=== PATIENT | female | born 1955 | race Caucasian/White ===

== ENCOUNTER 2018-05-29 10:09 | Observation (INO) ==
[2018-05-29] MEDS ORDERED: 0.9 % Sodium Chloride 1,000 ML IVC ONE (10:32)
--- NOTE | 2018-05-29 10:38 | Emergency Department Note ---
Disposition Clinical Impression: Dizziness Disposition: Admitted As Inpatient Condition: Fair Time of Disposition: 11:57 Dizziness HPI - General Chief Complaint: ED Dizziness Stated Complaint: dizziness, unsteady gait Time Seen by Provider: 05/29/18 10:15 Source: patient, family Limitations: no limitations Nursing Notes Reviewed: Yes Vital Signs Reviewed: Yes - History of Present Illness HPI Narrative: 62-year-old female presents from home with bedside for evaluation of dizziness. This is been constant upon awakening yesterday morning. She also had several self-limited episodes 2-3 days ago which lasted 4-5 minutes. She describes an intense sensation of the room spinning around her. Worse with any movement. Minimized but still present when laying flat with her eyes closed. She has a 45 minute gradual onset sharp stabbing midline headache and a [place] distribution that extends down to her for head. She also had a transient episode of numbness of her cheeks and upper palate of her mouth. She has associated nausea and vomiting. Decreased by mouth intake. Symptoms slightly improved but still severe with by mouth meclizine 25 mg over- the-counter. She is otherwise unable to ambulate secondary to her symptoms. PMH: Gout, hypertension. No history of CVA, TIA, ACS, or dysrhythmias. No anticoagulant or antiplatelet use. ROS: Positive: As above Negative: Fever, chills, neck pain, chest pain, palpitations, dyspnea, diaphoresis, extremity weakness/numbness/tingling. - Related Data Home Medications Medication Instructions Recorded Confirmed Omeprazole Magnesium [Prilosec Otc] 20 mg PO DAILY 08/25/15 05/29/18 Allopurinol [Zyloprim 100 MG] 100 mg PO DAILY PRN 05/29/18 05/29/18 Atorvastatin [Lipitor] 40 mg PO DAILY 05/29/18 05/29/18 Citalopram Hydrobromide 20 mg PO DAILY 05/29/18 05/29/18 [Citalopram HBr] Indomethacin [Indomethacin] 50 mg PO DAILY PRN 05/29/18 05/29/18 Lisinopril-HCTZ 20-12.5 [Prinzide 1 tab PO DAILY 05/29/18 05/29/18 20-12.5] Tramadol HCl [Ultram] 50 mg PO BID PRN 05/29/18 05/29/18 Previous Rx's Medication Instructions Recorded Ibuprofen [Motrin] 600 mg PO Q6HR PRN #20 tab 05/20/17 Allergies Allergy/AdvReac Type Severity Reaction Status Date / Time Tetanus Vaccines and Toxoid Allergy Swelling Verified 05/29/18 12:20 [Tetanus Vaccines & Toxoid] of Lip/Tongue/Throat All systems ED: reviewed and negative except as stated. 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 Head: atraumatic, normocephalic Eye: normal appearance, PERRL, EOMI with fatigable leftward nystagmus and no vertical nystagmus, no scleral icterus, no conjunctival injection ENT: mucous membranes tacky, normal external ear exam Neck: normal inspection, trachea midline, full ROM Chest: normal inspection, symmetric chest rise Respiratory: Good respiratory effort. Bilateral breath sounds are clear without wheezing, crackles, or rhonchi. Cardiovascular: Regular rate and rhythm. No clicks, rubs, gallops, or murmors. Normal heart sounds. Abdomen: Bowel sounds present normoactive x-4 quadrants. Abdomen is soft, nondistended, and nontender. No guarding or rebound. Musculoskeletal: Spontaneously moving all extremities. Skin: warm, dry, intact. Neuro: Alert and oriented x4. Sensation light touch intact and equal bilaterally in upper and lower extremities. Strength 5/5 and equal in upper and lower extremities. Negative finger to nose. Psych: Patient's affect is appropriate for situation. - General Limitations: no limitations General appearance: alert, in no apparent distress Course Course Narrative: Clinical concern is for central vertigo given her symptoms have been persistent and are present at rest. Will CT head without contrast and perform laboratory workup. Anticipate admission for inpatient MRI. Chart check shows that the patient has right carotid stenosis that was 60-70% 2 years ago. This could be contributing to her symptoms. We will recommend she have carotid duplex ultrasound on inpatient. Once results are back, will call neurology. CT head unremarkable per radiology read. Patient symptoms were not markedly improved while the emergency department after IV fluids. Nausea was well controlled with Zofran. I held on meclizine she guarded taking some this morning. I held on Valium or Ativan to not sedate her for hospitalist review. I discussed plan for admission for the patient with both her and her . They are in agreement to admission given patient cannot angulate and her dizziness persists. BuSpar my workup, I have not found a conclusive expiration. Still suspect peripheral however, when I spoke with the admitting hospitalist Dr. Negron, I recommended MRI to definitively rule out cerebellar stroke. EKG dated 29 May 2018 at 10:22 interpreted as sinus rhythm with a rate of 67. Normal intervals. Normal axis. Nonspecific ST-T changes. Compared to previous EKG dated 08/25/2015 showing no acute ischemic changes or comparison. Head CT 05/29/18 10:32 IMPRESSION: No acute intracranial abnormality. D/ / Manuel Parra MD / Manuel Parra MD Interpreting Provider: Manuel Parra MD Vital Signs Temperature 97.5 F L 05/29/18 10:10 Pulse Rate 73 05/29/18 10:10 Respiratory Rate 18 05/29/18 10:10 Blood Pressure 154/93 05/29/18 10:10 O2 Sat by Pulse Oximetry 98 05/29/18 10:10 Temperature 97.3 F L 05/29/18 14:33 Pulse Rate 63 05/29/18 14:33 Respiratory Rate 18 05/29/18 14:33 Blood Pressure 143/72 05/29/18 14:33 O2 Sat by Pulse Oximetry 94 05/29/18 14:33 Oxygen Delivery Oxygen Delivery Room Air Dizziness - Lab Data Result diagrams: 05/29/18 10:32 05/29/18 10:32 Lab Results 05/29/18 05/29/18 05/29/18 Range/Units 10:27 10:32 10:32 WBC 9.6 (4.3-11.1) K/mcL RBC 4.23 (3.82-4.97) M/mcL Hgb 13.2 (11.5-15.4) g/dL Hct 37.2 (35.3-44.9) % MCV 87.9 (83.0-100.0) fL MCH 31.2 (28.0-33.3) pg MCHC 35.5 (31.6-35.5) g/dL RDW 12.2 (11.5-14.5) % Plt Count 246 (140-400) K/mcL MPV 10.9 (9.4-12.4) fL Immature Gran % 0.3 (0-4) % Seg Neutrophils % 73.7 % Lymphocytes % 19.6 % Monocytes % 5.3 % Eosinophils % 0.8 % Basophils % 0.3 % Neutrophils # 7.1 (1.6-8.9) K/mcL Lymphocytes # 1.9 (0.6-4.6) K/mcL Monocytes # 0.5 (0.0-1.3) K/mcL Eosinophils # 0.1 (0.0-0.6) K/mcL Basophils # 0.0 (0.0-0.2) K/mcL Sodium 137 (136-145) mEq/L Potassium 3.6 (3.5-5.1) mEq/L Chloride 102 (98-107) mEq/L Carbon Dioxide 27 (23-29) mEq/L BUN 15 (8-23) mg/dL Creatinine 0.86 (0.60-1.20) mg/dL Est GFR ( Amer) > 60 (> 60) Est GFR (Non-Af Amer) > 60 (> 60) BUN/Creatinine Ratio 17 (6-26) Glucose 130 H (70-105) mg/dL POC Glucose 113 H (70-99) mg/dL Calculated Osmolality 287 (280-300) Calcium 10.0 (8.6-10.3) mg/dL Magnesium 1.7 (1.6-2.6) mg/dL
[2018-05-29] MEDS ORDERED: Ondansetron 4 MG/2 ML VIAL ONE (10:51)
[2018-05-29] MEDS: Ondansetron 4 MG/2 ML VIAL IVP ONE ×2 (10:53→10:54)
[2018-05-29 11:01] LABS: Basophils % 0.3 %; Eosinophils # 0.1 K/mcL (0.0-0.6); Eosinophils % 0.8 %; Hematocrit 37.2 % (35.3-44.9); Hemoglobin 13.2 g/dL (11.5-15.4); Immature Granulocytes % 0.3 % (0-4); Lymphocytes # 1.9 K/mcL (0.6-4.6); Lymphocytes % 19.6 %; Mean Corpuscular HGB Conc 35.5 g/dL (31.6-35.5); Mean Corpuscular Hemoglobin 31.2 pg (28.0-33.3); Mean Corpuscular Volume 87.9 fL (83.0-100.0); Mean Platelet Volume 10.9 fL (9.4-12.4); Monocytes # 0.5 K/mcL (0.0-1.3); Monocytes % 5.3 %; Neutrophils # 7.1 K/mcL (1.6-8.9); Platelet Count 246 K/mcL (140-400); Red Blood Count 4.23 M/mcL (3.82-4.97); Red Cell Distribution Width 12.2 % (11.5-14.5); Segmented Neutrophils % 73.7 %
[2018-05-29 11:21] LABS: BUN/Creatinine Ratio 17 (6-26); Blood Urea Nitrogen 15 mg/dL (8-23); Carbon Dioxide 27 mEq/L (23-29); Chloride 102 mEq/L (98-107); Glucose 130 mg/dL (70-105); Magnesium 1.7 mg/dL (1.6-2.6); Osmolality,Calculated 287 (280-300); Potassium 3.6 mEq/L (3.5-5.1); Sodium 137 mEq/L (136-145); eGFR For African Americans > 60 (> 60); eGFR For Non-African Americans > 60 (> 60)
--- NOTE | 2018-05-29 11:22 | Emergency Department Note ---
Disposition Clinical Impression: Dizziness Disposition: Admitted As Inpatient Condition: Fair General Adult HPI - General Chief complaint: ED Dizziness Stated complaint: dizziness, unsteady gait Time Seen by Provider: 05/29/18 10:15 Source: patient, family Limitations: no limitations - History of Present Illness Pain Scale: 7 - Related Data Home Medications Medication Instructions Recorded Confirmed Omeprazole Magnesium [Prilosec Otc] 20 mg PO DAILY 08/25/15 05/29/18 Allopurinol [Zyloprim 100 MG] 100 mg PO DAILY PRN 05/29/18 05/29/18 Atorvastatin [Lipitor] 40 mg PO DAILY 05/29/18 05/29/18 Citalopram Hydrobromide 20 mg PO DAILY 05/29/18 05/29/18 [Citalopram HBr] Indomethacin [Indomethacin] 50 mg PO DAILY PRN 05/29/18 05/29/18 Lisinopril-HCTZ 20-12.5 [Prinzide 1 tab PO DAILY 05/29/18 05/29/18 20-12.5] Tramadol HCl [Ultram] 50 mg PO BID PRN 05/29/18 05/29/18 Previous Rx's Medication Instructions Recorded Ibuprofen [Motrin] 600 mg PO Q6HR PRN #20 tab 05/20/17 Allergies Allergy/AdvReac Type Severity Reaction Status Date / Time Tetanus Vaccines and Toxoid Allergy Swelling Verified 05/29/18 12:20 [Tetanus Vaccines & Toxoid] of Lip/Tongue/Throat Past Medical History - Past Medical History Medical history: Reports: hyperlipidemia, hypertension Surgical history: Reports: hysterectomy Psychiatric history: Reports: anxiety, depression 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 - Social History Smoking Status: Never smoker Smokeless Tobacco Status: No Alcohol use: Reports: none Drug use: Reports: none Physical Exam - General Limitations: no limitations General appearance: alert, in no apparent distress Course Vital Signs Temperature 97.5 F L 05/29/18 10:10 Pulse Rate 73 05/29/18 10:10 Respiratory Rate 18 05/29/18 10:10 Blood Pressure 154/93 05/29/18 10:10 O2 Sat by Pulse Oximetry 98 05/29/18 10:10 Temperature 97.5 F L 05/29/18 10:27 Pulse Rate 57 05/29/18 11:53 Respiratory Rate 05/29/18 11:53 Blood Pressure 149/88 05/29/18 11:53 O2 Sat by Pulse Oximetry 97 05/29/18 11:53 Oxygen Delivery Oxygen Delivery Room Air Medical Decision Making - Lab Data Result diagrams: 05/29/18 10:32 05/29/18 10:32 Lab Results 05/29/18 05/29/18 05/29/18 Range/Units 10:27 10:32 10:32 WBC 9.6 (4.3-11.1) K/mcL RBC 4.23 (3.82-4.97) M/mcL Hgb 13.2 (11.5-15.4) g/dL Hct 37.2 (35.3-44.9) % MCV 87.9 (83.0-100.0) fL MCH 31.2 (28.0-33.3) pg MCHC 35.5 (31.6-35.5) g/dL RDW 12.2 (11.5-14.5) % Plt Count 246 (140-400) K/mcL MPV 10.9 (9.4-12.4) fL Immature Gran % 0.3 (0-4) % Seg Neutrophils % 73.7 % Lymphocytes % 19.6 % Monocytes % 5.3 % Eosinophils % 0.8 % Basophils % 0.3 % Neutrophils # 7.1 (1.6-8.9) K/mcL Lymphocytes # 1.9 (0.6-4.6) K/mcL Monocytes # 0.5 (0.0-1.3) K/mcL Eosinophils # 0.1 (0.0-0.6) K/mcL Basophils # 0.0 (0.0-0.2) K/mcL Sodium 137 (136-145) mEq/L Potassium 3.6 (3.5-5.1) mEq/L Chloride 102 (98-107) mEq/L Carbon Dioxide 27 (23-29) mEq/L BUN 15 (8-23) mg/dL Creatinine 0.86 (0.60-1.20) mg/dL Est GFR ( Amer) > 60 (> 60) Est GFR (Non-Af Amer) > 60 (> 60) BUN/Creatinine Ratio 17 (6-26) Glucose 130 H (70-105) mg/dL POC Glucose 113 H (70-99) mg/dL Calculated Osmolality 287 (280-300) Calcium 10.0 (8.6-10.3) mg/dL Magnesium 1.7 (1.6-2.6) mg/dL Attestation Statement - Attestation Attestation: I examined this patient and my medical decision-making was reviewed with the ONLINE MARKETING ANALYST/PA/Advanced Practice Nurse/Resident Physician. I agree with the documented findings, disposition and treatment plan as described except to the extent set forth below. The patient has vertiginous dizziness which started suddenly when she sat up yesterday morning after waking up. It did not start when she rolled over and she did not have any dizziness when she was lying in bed but did start when she sat up. It is worse with range of motion of her head however she also has vertiginous dizziness at rest and it is constant but worse with turning head, associated vomiting. Unsteady gait. Did have similar episode 6 months ago which spontaneously resolved. Does have a history of carotid artery stenosis. Last night she had a onset of a headache which began gradually over 45 minutes and was severe but is now resolved. Symptoms could certainly be from peripheral vertigo however concern for central cause such as cerebellar infarction especially with the patient's past history and age so we will initiate testing with labs, urine, noncontrast head CT with likely admission for neurology consultation and inpatient MRI. Patient did receive Zofran for her vomiting. 1116 I did review the EKG showing normal sinus rhythm with a rate of 67 bpm without acute ischemic change 1154
[2018-05-29] MEDS ORDERED: Naloxone 0.4 MG/ML INJ IVP PRN (13:49)
[2018-05-29] MEDS ORDERED: Indomethacin 25 MG CAPSULE PO PRN (14:03)
[2018-05-29] MEDS ORDERED: SUMAtriptan succinate 25 MG TABLET PO ONE (14:05)
[2018-05-29] MEDS ORDERED: *HR* Promethazine 25 MG/ML VIAL IVP PRN (14:09)
[2018-05-29] MEDS: 0.9 % Sodium Chloride 1,000 ML IVC SCH (14:46)
[2018-05-29 14:57] LABS: Bilirubin,Urine Negative (Negative); Blood,Urine Negative (Negative); Clarity,Urine Clear (Clear); Color,Urine Yellow (Yellow); Glucose,Urine (UA) Normal (Normal); Ketones,Urine Negative (Negative); Leukocyte Esterase,Urine Negative (Negative); Nitrite,Urine Negative (Negative); Protein,Urine Negative (Neg-Trace); Urobilinogen,Urine Normal (Normal)
--- NOTE | 2018-05-29 15:41 | Internal Med History&Physical ---
<Derek Aparicio - Last Filed: 05/29/18 16:30> Date of Encounter: 05/29/18 Time of Encounter: 13:30 Internal Medicine - H&P: HPI Chief complaint: Dizziness/N/V Admitted From: Emergency Dept Plans for Post Hospital Care: Home History of present illness: Ms. Chamberlain is a 62 year old female w/PMH of HLD, HTN, gout, and GERD presents from the ED with chief complaint of severe dizziness, headache, numbness of the cheeks and mouth since Friday. Patient reports she began having symptoms of feeling hot and cold followed by symptoms of dizziness, room spinning, nausea, dry heaves, headache, and pain to bilateral jaws. Also reports numbness of her cheeks and palate of her mouth. Denies history of migraines or vertigo. Reports sensitivity to light and sound. Sx worse with movement. Pt. reports feeling ill for the past 4 days w/fever/chills, nausea, dry heaving, and dizziness but denies changes in vision, unusual bleeding, abdominal pain, diarrhea, constipation, pre-syncope, or syncope. Past Med Surg Social Fam HX - Past Medical History Source: patient, old records reviewed, obtained from family Medical history: GERD, hyperlipidemia, hypertension, other (Gout) Additional medical history: Gout, Bowel obstructions Psychiatric history: anxiety, depression - Past Surgical History Surgical History: appendectomy, cholecystectomy, hysterectomy (Total) - Social History Smoking Status: Never smoker Smokeless Tobacco Status: No Alcohol use: none Drug use: none Occupational status: employed Current living situation: Home, With Family Activity Level: Independent ambulation Recent Out of Country Travel Within the Last 8 Weeks: No Exposure or Possible Exposure to Illness During Travel: No - Family History Mother Race: Family Member Ethnicity: Non- Living Status: Age at : 82 Cause of : [place] Hx Family Cardiac Disorders: Yes ([place], CAD, Stents, TIAs) Hx Family Endocrine Disorder: Yes (DM) Hx Family Neurologic Disorders: Yes (TIAs) Father Race: Family Member Ethnicity: Non- Living Status: Age at : 82 Cause of : [place] Hx Family Cardiac Disorders: Yes (CAD, [place]) Hx Family Endocrine Disorder: Yes (DM) Brother Race: Family Member Ethnicity: Non- Living Status: Age at : 40 Cause of : [place] @ 40 Hx Family Cardiac Disorders: Yes ([place], CAD, HTN) Sister Race: Family Member Ethnicity: Non- Living Status: Still Living Hx Family Endocrine Disorder: Yes (DM) Hx Family Neuromuscular Disorders: Yes (Parkinson's disease) Internal Medicine - H&P: Meds Omeprazole Magnesium [Prilosec Otc] 20 mg PO DAILY 08/25/15 [History] Ibuprofen [Motrin] 600 mg PO Q6HR PRN #20 tab 05/20/17 [Rx] Allopurinol [Zyloprim 100 MG] 100 mg PO DAILY PRN 05/29/18 [History] Atorvastatin [Lipitor] 40 mg PO DAILY 05/29/18 [History] Citalopram Hydrobromide [Citalopram HBr] 20 mg PO DAILY 05/29/18 [History] Indomethacin [Indomethacin] 50 mg PO DAILY PRN 05/29/18 [History] Lisinopril-HCTZ 20-12.5 [Prinzide 20-12.5] 1 tab PO DAILY 05/29/18 [History] Tramadol HCl [Ultram] 50 mg PO BID PRN 05/29/18 [History] 3 Allergy/AdvReac Type Severity Reaction Status Date / Time Tetanus Vaccines and Toxoid Allergy Swelling Verified 05/29/18 12:20 [Tetanus Vaccines & Toxoid] of Lip/Tongue/Throat All Systems PM: A 10-system review of systems was performed and is negative for pertinent findings except as documented above in the HPI. - Constitutional Constitutional: as per HPI, chills, fever(s), no night sweats - EENT Eyes: as per HPI, photophobia, no change in vision, no discharge, no pain Ears: no ear discharge, no ear pain, no tinnitus Nose, mouth and throat: no dysphagia, no nasal discharge, no neck pain, no sore throat - Breasts Breasts: as per HPI - Cardiovascular Cardiovascular ROS IM: no chest pain, no diaphoresis, no dyspnea, no lightheadedness, no palpitations, no syncope - Respiratory Respiratory: no cough, no dyspnea, no wheezing, no excessive phlegm production - Gastrointestinal Gastrointestinal: as per HPI, nausea, vomiting, no abdominal pain, no diarrhea, no hematemesis, no hematochezia, no melena - Genitourinary Genitourinary: no change in urinary stream, no dysuria, no flank pain, no hematuria Menstruation: as per HPI - Musculoskeletal Musculoskeletal ROS IM: no numbness, no tingling - Integumentary Integumentary IM: no rash, no unusual bruising - Neurological Neurological ROS: as per HPI, disequilibrium, dizziness, headache(s), vertigo, no confusion, no convulsions, no focal weakness, no numbness, no tingling, no tremor(s) - Psychiatric Psychiatric: as per HPI, anxiety, depression - Endocrine Endocrine IM: as per HPI - Hematologic/Lymphatic Hematologic/Lymphatic: no easy bruising - Allergic/Immunologic Allergic/Immunologic: as per HPI - Constitutional Vitals: Temp Pulse Resp BP Pulse Ox 97.3 F L 63 18 143/72 94 05/29/18 14:33 05/29/18 14:33 05/29/18 14:33 05/29/18 14:33 05/29/18 14:33 General appearance: Present: cooperative, mild distress (Sensitivity to light and sound), A&O X 3, morbidly obese, pleasant, answers questions appropriately - Head Head exam: Present: atraumatic, normocephalic - Eye Eye exam: Present: PERRL, conjuntiva pink, sclera anicteric Pupils: Present: PERRL - ENT ENT exam: Present: normal exam - Neck Neck exam general surgery: Present: normal inspection, supple, trachea midline. Absent: lymphadenopathy - Respiratory Respiratory exam: Present: CTAB. Absent: accessory muscle use, rales, rhonchi, wheezes - Cardiovascular Cardiovascular exam: Present: RRR, +S1, +S2. Absent: diastolic murmur, gallop, rubs, systolic murmur - GI/Abdominal GI/Abdominal exam: Present: normal bowel sounds, soft, no peritoneal signs. Absent: distended, tenderness - Rectal Rectal exam: Present: deferred - Additional comments: exam deferred. - Extremities Exam Extremities exam: Present: warm, radial pulses palpable and symmetrical. Absent : calf tenderness, cyanotic, pedal edema - Back Exam Back exam: Present: normal inspection - Neurological Exam Neurological exam: Present: alert, CN II-XII intact, oriented X3, no focal deficits, strengths equal and symetr throughout, facial droop (Right side of mouth). Absent: pronater drift, speech deficit - Psychiatric Psychiatric exam: Present: anxious - Skin Skin exam: Present: dry, intact Internal Med - H&P Results - Labs CBC & Chem 7: 05/29/18 10:32 05/29/18 10:32 Labs: Cardiac Enzymes 05/29/18 Range/Units 14:16 Troponin I < 0.03 (< 0.04) ng/mL Urine 05/29/18 Range/Units 14:37 Urine Color Yellow (Yellow) Urine Clarity Clear (Clear) Urine pH 7.0 (5.0-8.0) pH Units Ur Specific [place] 1.010 (1.010-1.025) Urine Protein Negative (Neg-Trace) mg/dL Urine Glucose (UA) Normal (Normal) mg/dL - EKG Data EKG shows normal: sinus rhythm Rate: normal - EKG Data Prior EKG available for review: yes When compared to previous EKG: there is no significant change Interpretation IM: normal EKG EKG comments: 05/29/18 15:52 EKG dated 08/25/15 shows sinus rhythm. EKG dated 05/29/18 shows sinus rhythm with normal ECG. - Diagnostic Studies CT scan - head Additional comments: Impressions Head CT 05/29/18 10:32 IMPRESSION: No acute intracranial abnormality. D/ / Manuel Parra MD / Manuel Parra MD Interpreting Provider: Manuel Parra MD - Assessment and plan (1) Dizziness Current Visit: Yes Status: Acute Assessment and plan: Acute dizziness for the past 4 days accompanied by N/V/MEDELLIN/vertigo sx. Pt. reports inability to ambulate d/t sensation of "room spinning". Denies hx of migraine or vertigo. Falls/safety precautions. Up with assist only. Meclizine ordered for vertigo. (2) Headache Current Visit: Yes Status: Acute Assessment and plan: Acute headache for the past several days accompanied by sensitivity to light and sound. Pt. describes MEDELLIN as [place]ian MEDELLIN extending from forehead over scalp to back of head. No alleviating factors. Stair-step pain medication for MEDELLIN pain mgmt. Sumatriptan once for migraine sx. Solu-Medrol 60 mg IVP once and aspirin 325 mg daily per Neurology. Qualifiers: Headache type: unspecified Headache chronicity pattern: acute headache Intractability: intractable Qualified Code(s): R51 - Headache (3) HTN (hypertension) Current Visit: Yes Status: Chronic Assessment and plan: Hx of chronic HTN. Monitor pt. and VS. Continue pts. Lisinopril. Qualifiers: Hypertension type: essential hypertension Qualified Code(s): I10 - Essential (primary) hypertension (4) HLD (hyperlipidemia) Current Visit: Yes Status: Chronic Assessment and plan: Hx of chronic HLD. Lipid panel in a.m. labs. Continue pts. Lipitor. Qualifiers: Hyperlipidemia type: pure hypercholesterolemia Qualified Code(s): E78.00 - Pure hypercholesterolemia, unspecified; E78.0 - Pure hypercholesterolemia (5) Gout Current Visit: Yes Status: Chronic Assessment and plan: Hx of chronic gout. Stable. Continue pts. Allopurinol. Qualifiers: Gout site: unspecified site Gout etiology: unspecified cause Chronicity: unspecified Qualified Code(s): M10.9 - Gout, unspecified (6) GERD (gastroesophageal reflux disease) Current Visit: Yes Status: Chronic Assessment and plan: Hx of chronic GERD. IVP Phenergan 12.5 mg Q6HR PRN for N/V. Continue pts. PO Prilosec. Qualifiers: Esophagitis presence: esophagitis presence not specified Qualified Code(s) : K21.9 - Gastro-esophageal reflux disease without esophagitis (7) DVT prophylaxis Current Visit: Yes Status: Acute Assessment and plan: Heparin 5,000 units SQ Q8HR for DVT prophylaxis. Monitor pt. for signs of bleeding. (8) Facial droop Current Visit: Yes Status: Acute Assessment and plan: New onset of droop to right mouth on exam. Pts. UE/LE strengths equal bilaterally. Reports dizziness, headache, nausea, dry heaving, and sensation of "room spinning" since Friday. Denies hx of CVA, TIA, migraine, or vertigo. CT of the head unremarkable. MRI of the head/brain ordered to r/o infarct/ ischemia. NIHSS modified scale. Neuro checks Q2HR. Dysphagia screen. NPO until dysphagia screen passed. Mother had hx of TIAs. Echocardiogram ordered. Bilateral carotid Dopplers ordered. Falls/safety precautions. Up with assist only. Neurology consult ordered and discussed w/Dr. Meehan w/recommendations for aspirin 325 mg daily, Solu-Medrol 60 mg IVP once, Sumatriptan 25 mg and I appreciate the consult and recommendations as always. Pt. discussed w/Dr. Negron who agrees w/plan of care. Pt. is moderate risk for further morbidity based on current sx, new onset of facial droop, familial hx of TIA and cardiac disease; and risk factors of HTN and HLD. Observation. - Time Spent With Patient Total time spent is greater than 50% in coordination of care (as documented) at patient's floor/unit and/or counseling patient: Greater than 35 minutes <Kenny Negron - Last Filed: 05/30/18 08:45> Date of Encounter: 05/30/18 Internal Medicine - H&P: HPI History of present illness: Ms. Chamberlain is a 62 year old female All Systems PM: A 10-system review of systems was performed and is negative for pertinent findings except as documented above in the HPI. - Constitutional Vitals: Temp Pulse Resp BP Pulse Ox 97.8 F 62 15 102/68 97 05/30/18 08:00 05/30/18 08:00 05/30/18 08:00 05/30/18 08:00 05/30/18 08:00 Internal Med - H&P Results - Labs CBC & Chem 7: 05/30/18 02:37 05/30/18 02:37 Labs: Short CBC 05/30/18 Range/Units 02:37 WBC 14.1 H (4.3-11.1) K/mcL Hgb 12.8 (11.5-15.4) g/dL Hct 37.2 (35.3-44.9) % Plt Count 255 (140-400) K/mcL Neutrophils # 12.7 H (1.6-8.9) K/mcL BMP 05/30/18 02:37 Sodium 138 Potassium 4.1 Chloride 107 Carbon Dioxide 22 L BUN 17 Creatinine 0.72 Glucose 125 H Calcium 9.5 Cardiac Enzymes 05/29/18 05/29/18 05/30/18 Range/Units 14:16 20:13 02:37 Troponin I < 0.03 < 0.03 < 0.03 (< 0.04) ng/mL Liver Function 05/30/18 Range/Units 02:37 Total Bilirubin 1.0 (0.3-1.0) mg/dL AST 16 (13-39) Units/L ALT 16 (7-52) Units/L Alkaline Phosphatase 109 H (34-104) Units/L Albumin 4.1 (3.5-5.7) g/dL Urine 05/29/18 Range/Units 14:37 Urine Color Yellow (Yellow) Urine Clarity Clear (Clear) Urine pH 7.0 (5.0-8.0) pH Units Ur Specific [place] 1.010 (1.010-1.025) Urine Protein Negative (Neg-Trace) mg/dL Urine Glucose (UA) Normal (Normal) mg/dL - Impressions ITS Impressions Brain MRI 05/29/18 14:06 IMPRESSION: Normal MRI of the brain. D/ / Zoltan Chan MD / Zoltan Chan MD Interpreting Provider: Zoltan Chan MD - Attending Attestation Seen and assessed. Continue plan of care for facial droop and dizziness. 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 - Assessment and plan (1) Dizziness Current Visit: Yes Status: Acute (2) Headache Current Visit: Yes Status: Acute Qualifiers: Headache type: unspecified Headache chronicity pattern: acute headache Intractability: intractable Qualified Code(s): R51 - Headache (3) HTN (hypertension) Current Visit: Yes Status: Chronic Qualifiers: Hypertension type: essential hypertension Qualified Code(s): I10 - Essential (primary) hypertension (4) HLD (hyperlipidemia) Current Visit: Yes Status: Chronic Qualifiers: Hyperlipidemia type: pure hypercholesterolemia Qualified Code(s): E78.00 - Pure hypercholesterolemia, unspecified; E78.0 - Pure hypercholesterolemia (5) Gout Current Visit: Yes Status: Chronic Qualifiers: Gout site: unspecified site Gout etiology: unspecified cause Chronicity: unspecified Qualified Code(s): M10.9 - Gout, unspecified (6) GERD (gastroesophageal reflux disease) Current Visit: Yes Status: Chronic Qualifiers: Esophagitis presence: esophagitis presence not specified Qualified Code(s) : K21.9 - Gastro-esophageal reflux disease without esophagitis (7) DVT prophylaxis Current Visit: Yes Status: Acute (8) Facial droop Current Visit: Yes Status: Acute - Time Spent With Patient Total time spent is greater than 50% in coordination of care (as documented) at patient's floor/unit and/or counseling patient:
[2018-05-29] MEDS ORDERED: methylPREDNISolone 125 MG/2 ML VIAL IVP ONE (16:16)
[2018-05-29] MEDS: Aspirin Enteric Coated 325 MG Tablet PO SCH (16:33)
[2018-05-29] MEDS: *HR* HYDROcodone/Acet 7.5/325 mg TABLET PO PRN (20:13)
[2018-05-29] MEDS: *HR* Heparin 5,000 UNIT/ML VIAL SQ SCH (22:02)
[2018-05-29 23:14] LABS: Adenovirus Not Detected (Not Detect); Bordetella Pertussis Not Detected (Not Detect); Chlamydophila pneumoniae Not Detected (Not Detect); Coronavirus 229E Not Detected (Not Detect); Coronavirus HKU1 Not Detected (Not Detect); Coronavirus NL63 Not Detected (Not Detect); Coronavirus OC43 Not Detected (Not Detect); Human Metapneumovirus Not Detected (Not Detect); Human Rhinovirus/Enterovirus Not Detected (Not Detect); Influenza A Subtype 2009 H1 Not Detected (Not Detect); Influenza A Untypeable Not Detected (Not Detect); Influenza B Not Detected (Not Detect); Mycoplasma pneumoniae Not Detected (Not Detect); Parainfluenza Virus 1 Not Detected (Not Detect); Parainfluenza Virus 2 Not Detected (Not Detect); Parainfluenza Virus 3 Not Detected (Not Detect); Parainfluenza Virus 4 Not Detected (Not Detect); Respiratory Syncytial Virus Not Detected (Not Detect)
[2018-05-30] MEDS: *HR* HYDROcodone/Acet 7.5/325 mg TABLET PO PRN (02:23)
[2018-05-30 03:43] LABS: Basophils % 0.1 %; Hematocrit 37.2 % (35.3-44.9); Hemoglobin 12.8 g/dL (11.5-15.4); Immature Granulocytes % 0.6 % (0-4); Lymphocytes # 1.2 K/mcL (0.6-4.6); Lymphocytes % 8.4 %; Mean Corpuscular HGB Conc 34.4 g/dL (31.6-35.5); Mean Corpuscular Hemoglobin 30.5 pg (28.0-33.3); Mean Corpuscular Volume 88.6 fL (83.0-100.0); Mean Platelet Volume 11.3 fL (9.4-12.4); Monocytes # 0.1 K/mcL (0.0-1.3); Monocytes % 0.9 %; Neutrophils # 12.7 K/mcL (1.6-8.9); Platelet Count 255 K/mcL (140-400)
[2018-05-30 04:06] LABS: Alanine Aminotransferase 16 Units/L (7-52); Albumin 4.1 g/dL (3.5-5.7); Albumin/Globulin Ratio 1.6 (1.1-2.2); Alkaline Phosphatase 109 Units/L (34-104); Aspartate Amino Transferase 16 Units/L (13-39); BUN/Creatinine Ratio 24 (6-26); Blood Urea Nitrogen 17 mg/dL (8-23); Calcium 9.5 mg/dL (8.6-10.3); Carbon Dioxide 22 mEq/L (23-29); Chloride 107 mEq/L (98-107); Chol/HDL Ratio 5.1 (0-4.9); Cholesterol 202 mg/dL (< 200); Globulin 2.6 g/dL (2.4-3.5); Glucose 125 mg/dL (70-105); HDL Cholesterol 40 mg/dL (40-59); LDL Cholesterol,Calculated 145 mg/dL (0-99); Magnesium 1.8 mg/dL (1.6-2.6); Osmolality,Calculated 289 (280-300); Potassium 4.1 mEq/L (3.5-5.1); Sodium 138 mEq/L (136-145); Total Protein 6.7 g/dL (6.4-8.9); Triglycerides 83 mg/dL (< 150); eGFR For African Americans > 60 (> 60); eGFR For Non-African Americans > 60 (> 60)
[2018-05-30] MEDS: 0.9 % Sodium Chloride 1,000 ML IVC SCH ×2 (05:37→19:50)
[2018-05-30] MEDS: *HR* Heparin 5,000 UNIT/ML VIAL SQ SCH ×3 (05:40→21:26)
[2018-05-30 06:44] LABS: Estimated Average Glucose 126 mg/dl
[2018-05-30] MEDS: Lisinopril-HCTZ 20-12.5mg TABLET PO SCH (09:14)
[2018-05-30] MEDS: Aspirin Enteric Coated 325 MG Tablet PO SCH (09:14)
--- NOTE | 2018-05-30 10:02 | Electrocardiograph Report ---
[place] Test Date: 2018-05-29 Pat Name: Delma Chamberlain Department: [id number] Room: 3B65 Gender: F Electric Spot [employer]der: : 1955 Requested By: Rubén Alfaro Order Number: [id number] Reading MD: Tim Webster Measurements Intervals [place] Rate: 67 P: 63 ID: [id number] QRS: 10 QRSD: 98 T: 16 QT: 408 QTc: 423 Interpretive Statements SINUS RHYTHM WARNING: DATA QUALITY MAY AFFECT INTERPRETATION Electronically Signed On 05-30-2018 10:00:36 EDT by Tim Webster
--- NOTE | 2018-05-30 15:02 | Neurology - Consult Note ---
Date of Encounter: 05/30/18 Time of Encounter: 12:59 Assessment and Plan (1) Migrainous dizziness Current Visit: Yes Status: Acute This patient who has an history of chronic migraine headaches recently had an acute headache seems to be a real bad migraine attack causing dizziness and lightheadedness but at the same time she also has some nonspecific symptoms of numbness and paresthesias without any lateralizing sign of a stroke on current neurological examination. MRI of the brain has been negative. Suggest to give her IV fluids ovoid any narcotics we can give her a scheduled doses of Solu-Medrol for acute migraine attack along with some Phenergan as well as start her amitriptyline at bedtime for prevention. Slowly is increase ambulation. She would probably need follow-up appointment as an outpatient for chronic migraine prevention therapy (2) Stenosis of right carotid artery without infarction Current Visit: Yes Status: Acute MRI of the brain did not show any acute infarction during the workup she did noted to have right internal carotid stenosis 60-79% no evidence of any acute infarction. At the moment no lateralizing sign of the stroke she probably would benefit from medical management with antiplatelet therapy with aspirin along with the statin. On the other hand she would need repeat imaging studies in 6 month to a year. She would benefit from vascular surgery consultation, that could be done as an outpatient at the moment does not think that she would require any acute intervention (3) Acute intractable headache Current Visit: Yes Status: Acute Qualifiers: Headache type: unspecified Qualified Code(s): R51 - Headache (4) Dizziness Current Visit: Yes Status: Acute History of Present Illness HPI: Ms. Chamberlain is a 62 year old female with PMH of HLD, HTN, gout, and GERD admitted form ED with complaint of severe dizziness, headache, numbness of the cheeks and mouth since Friday. Patient reports she began having symptoms of feeling hot and cold followed by symptoms of dizziness, room spinning, nausea, dry heaves, headache, and pain to bilateral jaws. Also reports numbness of her cheeks and palate of her mouth. Pt has history of migraines or vertigo but recently the headaches have subsided and she was not having as bad headaches that she used to in the past. This time the headaches are associated with sensitivity to light and sounds, worse with movement. Pt. reports feeling ill for the past 4 days w/fever/chills , nausea, dry heaving, and dizziness but denies changes in vision, unusual bleeding, abdominal pain, diarrhea, constipation, pre-syncope, or syncope. CT scan of the head was negative an MRI of the brain also reported as negative Past Med Surg Social Fam HX - Past Medical History Medical history: hyperlipidemia, hypertension Additional medical history: Gout, Bowel obstructions Psychiatric history: anxiety, depression - Past Surgical History Surgical History: hysterectomy - Social History Smoking Status: Never smoker Smokeless Tobacco Status: No Alcohol use: none Drug use: none - Family History Mother Race: Family Member Ethnicity: Non- Living Status: Age at : 82 Cause of : [place] Hx Family Cardiac Disorders: Yes ([place], CAD, Stents, TIAs) Hx Family Endocrine Disorder: Yes (DM) Hx Family Neurologic Disorders: Yes (TIAs) Father Race: Family Member Ethnicity: Non- Living Status: Age at : 82 Cause of : [place] Hx Family Cardiac Disorders: Yes (CAD, [place]) Hx Family Endocrine Disorder: Yes (DM) Brother Race: Family Member Ethnicity: Non- Living Status: Age at : 40 Cause of : [place] @ 40 Hx Family Cardiac Disorders: Yes ([place], CAD, HTN) Sister Race: Family Member Ethnicity: Non- Living Status: Still Living Hx Family Endocrine Disorder: Yes (DM) Hx Family Neuromuscular Disorders: Yes (Parkinson's disease) Medications and Allergies Omeprazole Magnesium [Prilosec Otc] 20 mg PO DAILY 08/25/15 [History] Ibuprofen [Motrin] 600 mg PO Q6HR PRN #20 tab 05/20/17 [Rx] Allopurinol [Zyloprim 100 MG] 100 mg PO DAILY PRN 05/29/18 [History] Atorvastatin [Lipitor] 40 mg PO DAILY 05/29/18 [History] Citalopram Hydrobromide [Citalopram HBr] 20 mg PO DAILY 05/29/18 [History] Indomethacin [Indomethacin] 50 mg PO DAILY PRN 05/29/18 [History] Lisinopril-HCTZ 20-12.5 [Prinzide 20-12.5] 1 tab PO DAILY 05/29/18 [History] Tramadol HCl [Ultram] 50 mg PO BID PRN 05/29/18 [History] 3 Allergy/AdvReac Type Severity Reaction Status Date / Time Tetanus Vaccines and Toxoid Allergy Swelling Verified 05/29/18 12:20 [Tetanus Vaccines & Toxoid] of Lip/Tongue/Throat All Systems: The remainder of the systems were reviewed and are negative Physical Examination - Vital Signs Vital Signs: Initial Vital Signs Temp Pulse Resp BP Pulse Ox 97.5 F L 73 18 154/93 98 05/29/18 10:10 05/29/18 10:10 05/29/18 10:10 05/29/18 10:10 05/29/18 10:10 - Exam Exam: GENERAL: Comfortable in no acute distress HEENT: Normal LUNGS: CTA HEART: RRR, S1 S2 Audible, no murmur EXTREMITIES: No Pedal edema. DETAILED NEUROLOGICAL EXAMINATION: MENTAL STATUS: Oriented to person, place, date and situation. Memory: knows the President, Aware of recent events Recent Memory Intact Cranial Nerve Examination: CN - II: Visual Acuity, Field of Vision Normal, Fundus examination: No disk edema, Pupils- size shape reaction to light and accommodation: All normal. CN III, IV, : External ocular movements were intact, Pupils were reactive, Nodrooping of the eyelids CN V: Sensation over the face to light touch and pinprick all normal. Corneal reflexes not tested, jaw jerk normal. CN VII: No facial asymmetry, no flattening of nasolabial folds, no difficulty in closing the eyes, no loss of forehead wrinkles, no difficulty in eye-closure, frowning raising eyebrows. CNVIII: No significant hearing loss CN IX, X: Uvula centralized not deviated, Gag reflex: Not tested CN X1: Sternocleidomastoid, trapezius, normal or evidence of any weakness. CN X11: No Dysarthria, no wasting or fibrilation f tongue muscles, no deviation, tongue muscle strength normal. Motor examination: No hypertrophy, tone was normal, power grade 0-5 Upper limbs Proximal- No difficulty in lifting the arms above the head. Distal- No weakness in distal muscles On formal testing 5/5 all over Lower limbs On formal testing 5/5 all over Coordination: [id number] normal. Target pursuit normal finger tapping normal, Rapid alternating moment of wrist normal Sensory system: Superficial sensations- Touch normal. Pain- Pinprick, Temperature all normal, Deep sensation normal, Joint position sense normal. Cortical sensation, Tactile discrimination, localization and extinction all normal. Deep tendon reflexes. Symmetrical bilateral, No evidence of Babinski. No sign of meningeal irritation Gait Examination: Deferred Results - Laboratory Findings CBC and BMP: 05/30/18 02:37 05/30/18 02:37 Abnormal lab findings: Abnormal lab results WBC 14.1 K/mcL (4.3-11.1) H 05/30/18 02:37 Neutrophils # 12.7 K/mcL (1.6-8.9) H 05/30/18 02:37 Carbon Dioxide 22 mEq/L (23-29) L 05/30/18 02:37 Glucose 125 mg/dL (70-105) H 05/30/18 02:37 POC Glucose 113 mg/dL (70-99) H 05/29/18 10:27 Hemoglobin A1c 6.0 % (-5.6) H 05/30/18 02:37 Alkaline Phosphatase 109 Units/L (34-104) H 05/30/18 02:37 Cholesterol 202 mg/dL (< 200) H 05/30/18 02:37 LDL Cholesterol, Calc 145 mg/dL (0-99) H 05/30/18 02:37 Cholesterol/HDL Ratio 5.1 (0-4.9) H 05/30/18 02:37 - Diagnostic Findings Additional findings: . MRI of the brain is reported as negative Echocardiogram is negative Carotid duplex shows right ICA 60-79% stenosis Consult Discharge Plan - Plan Referrals: Eunice Gillis, PROCESS CONTROLS TECHNICIAN [Primary Care Provider] -
[2018-05-30] MEDS: Valproic Acid INJ 500 MG in 0.9 % Sodium Chloride 100 ML IVPB SCH (17:59)
[2018-05-30] MEDS: methylPREDNISolone 125 MG/2 ML VIAL IVP SCH (17:59)
--- NOTE | 2018-05-30 19:28 | Internal Med Progress Note ---
Date of Encounter: 05/30/18 Time of Encounter: 10:25 - Assessment and plan (1) Dizziness Current Visit: Yes Status: Acute Assessment and plan: IMproved. Head CT is negative. Brain MRI is negative. Echocardiogram shows LVEF of 60% with mild LV DD, mild MR and no PFO. Carotid Dopplers show 60-79% in the right mid ICA. Orthostatics ordered and pending. MARCO A hose ordered. Patient has been evaluated by neurology. Suggest that patient has migrainous dizziness, give IV fluids and scheduled doses of Solu-Medrol as well as Phenergan, amitriptyline at bedtime. Recommend slowly increasing ambulation. Follow-up outpatient for chronic migraines. Patient will follow-up outpatient for vascular surgery consultation regarding carotids. Patient is improved, can consider discharge tomorrow. Head CT 05/29/18 10:32 IMPRESSION: No acute intracranial abnormality. D/ / Manuel Parra MD / Manuel Parra MD Interpreting Provider: Manuel Parra MD Brain MRI 05/29/18 14:06 IMPRESSION: Normal MRI of the brain. D/ / Zoltan Chan MD / Zoltan Chan MD Interpreting Provider: Zoltan Chan MD Echocardiogram 05/29/18 14:08 Impressions: LVEF 60%. Mild left ventricular diastolic dysfunction. Normal right ventricular structure and function. Mild mitral regurgitation. No pulmonary hypertension. No PFO with saline contrast injection. Left Ventricular Wall Motion: Rest Echo Findings All wall segments showed normal motion. Findings: Study Quality * Technically adequate exam. ECG Findings * Normal sinus rhythm. Left Ventricle * LVEF 60%. * Normal LV chamber size, wall thickness and function. * Mild left ventricular diastolic dysfunction. Right Ventricle * Normal right ventricular structure and function. Left Atrium * Normal left atrial size. Right Atrium * Normal right atrial size. Mitral Valve * No mitral stenosis. * Mild mitral regurgitation. * Normal mitral valve structure. Aortic Valve * No aortic regurgitation. * Trileaflet aortic valve. * No aortic stenosis. Tricuspid Valve * Normal tricuspid valve structure. * Trace tricuspid regurgitation. * Estimated RA pressure is 3 mmHg. * Estimated RVSP is 23 mmHg. * No pulmonary hypertension. Pulmonic Valve * Pulmonic valve is not well visualized. * No pulmonic stenosis. * No pulmonic regurgitation. Pulmonary Artery * Pulmonary artery not well visualized. Aorta * Normally sized aortic root. Pericardium * There is no pericardial effusion present. Interatrial Septum * No evidence of PFO by color Doppler. IVC * Normal IVC dimensions and inspiratory collapse. Acute dizziness for the past 4 days accompanied by N/V/MEDELLIN/vertigo sx. Pt. reports inability to ambulate d/t sensation of "room spinning". Denies hx of migraine or vertigo. Falls/safety precautions. Up with assist only. Meclizine ordered for vertigo. (2) Headache Current Visit: Yes Status: Acute Assessment and plan: Plan as above. Qualifiers: Headache type: unspecified Headache chronicity pattern: acute headache Intractability: intractable Qualified Code(s): R51 - Headache (3) HTN (hypertension) Current Visit: Yes Status: Chronic Assessment and plan: Hx of chronic HTN. Stable and well-controlled. Continue current medications. Qualifiers: Hypertension type: essential hypertension Qualified Code(s): I10 - Essential (primary) hypertension (4) HLD (hyperlipidemia) Current Visit: Yes Status: Chronic Assessment and plan: Chronic. Continue home medications. Qualifiers: Hyperlipidemia type: pure hypercholesterolemia Qualified Code(s): E78.00 - Pure hypercholesterolemia, unspecified; E78.0 - Pure hypercholesterolemia (5) Gout Current Visit: Yes Status: Chronic Assessment and plan: Chronic. Continue home medication. Qualifiers: Gout site: unspecified site Gout etiology: unspecified cause Chronicity: unspecified Qualified Code(s): M10.9 - Gout, unspecified (6) GERD (gastroesophageal reflux disease) Current Visit: Yes Status: Chronic Assessment and plan: Chronic. No increase in symptoms. Continue home medications. Qualifiers: Esophagitis presence: esophagitis presence not specified Qualified Code(s) : K21.9 - Gastro-esophageal reflux disease without esophagitis (7) DVT prophylaxis Current Visit: Yes Status: Acute Assessment and plan: MARCO A hose. Encourage ambulation. (8) Facial droop Current Visit: Yes Status: Acute Assessment and plan: Likely secondary to migraines. MRI is negative head CT is negative. Continue IV steroids, IV fluids, amitriptyline at night. - Time Spent With Patient Total time spent is greater than 50% in coordination of care (as documented) at patient's floor/unit and/or counseling patient: less than 15 minutes - Subjective Interval history: Patient was seen and assessed at bedside at 10:25 AM. She reports feeling dizzy , hot flashes, tingly face on Friday and Friday, she was very dizzy and could not get up out of bed. She states that she feels nauseated and dizzy still at this time, though it is somewhat better. She also reports intermittent headache frontal and coronal. Patient states she feels like her eyeballs are quivering. She denies chest pain or shortness of breath, denies any vision changes currently. - Constitutional Vitals: Temp Pulse Resp BP Pulse Ox 98.3 F 68 16 107/65 98 05/30/18 18:52 05/30/18 18:52 05/30/18 18:52 05/30/18 18:52 05/30/18 18:52 General appearance: Present: cooperative, mild distress (Sensitivity to light and sound), A&O X 3, morbidly obese, pleasant, no acute distress, answers questions appropriately - Head Head exam: Present: atraumatic, normal inspection, normocephalic - Eye Eye exam: Present: EOMI, normal appearance, conjuntiva pink, sclera anicteric. Absent: nystagmus - Neck Neck exam general surgery: Present: supple, trachea midline. Absent: lymphadenopathy, tenderness - Respiratory Respiratory exam: Present: CTAB. Absent: accessory muscle use, rales, rhonchi, wheezes - Cardiovascular Cardiovascular exam: Present: RRR, +S1, +S2. Absent: diastolic murmur, gallop, rubs, systolic murmur - GI/Abdominal GI/Abdominal exam: Present: normal bowel sounds, soft, no peritoneal signs. Absent: distended, hepatomegaly, tenderness - Extremities Exam Extremities exam: Present: normal capillary refill, normal inspection, warm, radial pulses palpable and symmetrical. Absent: calf tenderness, cyanotic, pedal edema, tenderness - Neurological Exam Neurological exam: Present: alert, CN II-XII intact, oriented X3, no focal deficits, facial droop. Absent: motor sensory deficit, speech deficit - Skin Skin exam: Present: dry, intact, normal color, warm. Absent: rash Internal Medicine: Result - Labs CBC & Chem 7: 05/30/18 02:37 05/30/18 02:37 Labs: Short CBC 05/30/18 Range/Units 02:37 WBC 14.1 H (4.3-11.1) K/mcL Hgb 12.8 (11.5-15.4) g/dL Hct 37.2 (35.3-44.9) % Plt Count 255 (140-400) K/mcL Neutrophils # 12.7 H (1.6-8.9) K/mcL BMP 05/30/18 02:37 Sodium 138 Potassium 4.1 Chloride 107 Carbon Dioxide 22 L BUN 17 Creatinine 0.72 Glucose 125 H Calcium 9.5 Cardiac Enzymes 05/29/18 05/30/18 Range/Units 20:13 02:37 Troponin I < 0.03 < 0.03 (< 0.04) ng/mL Liver Function 05/30/18 Range/Units 02:37 Total Bilirubin 1.0 (0.3-1.0) mg/dL AST 16 (13-39) Units/L ALT 16 (7-52) Units/L Alkaline Phosphatase 109 H (34-104) Units/L Albumin 4.1 (3.5-5.7) g/dL - Impressions Impressions Echocardiogram 05/29/18 14:08 Impressions: LVEF 60%. Mild left ventricular diastolic dysfunction. Normal right ventricular structure and function. Mild mitral regurgitation. No pulmonary hypertension. No PFO with saline contrast injection. Left Ventricular Wall Motion: Rest Echo Findings All wall segments showed normal motion. Findings: Study Quality * Technically adequate exam. ECG Findings * Normal sinus rhythm. Left Ventricle * LVEF 60%. * Normal LV chamber size, wall thickness and function. * Mild left ventricular diastolic dysfunction. Right Ventricle * Normal right ventricular structure and function. Left Atrium * Normal left atrial size. Right Atrium * Normal right atrial size. Mitral Valve * No mitral stenosis. * Mild mitral regurgitation. * Normal mitral valve structure. Aortic Valve * No aortic regurgitation. * Trileaflet aortic valve. * No aortic stenosis. Tricuspid Valve * Normal tricuspid valve structure. * Trace tricuspid regurgitation. * Estimated RA pressure is 3 mmHg. * Estimated RVSP is 23 mmHg. * No pulmonary hypertension. Pulmonic Valve * Pulmonic valve is not well visualized. * No pulmonic stenosis. * No pulmonic regurgitation. Pulmonary Artery * Pulmonary artery not well visualized. Aorta * Normally sized aortic root. Pericardium * There is no pericardial effusion present. Interatrial Septum * No evidence of PFO by color Doppler. IVC * Normal IVC dimensions and inspiratory collapse. Consult Discharge Plan - Plan Referrals: Eunice Gillis, ROBB [Primary Care Provider] -
[2018-05-30] MEDS: Acetaminophen 325 MG TABLET PO PRN (21:28)
[2018-05-31] MEDS: Acetaminophen 325 MG TABLET PO PRN ×2 (03:23→11:15)
[2018-05-31] MEDS: methylPREDNISolone 125 MG/2 ML VIAL IVP SCH (05:37)
[2018-05-31] MEDS: Valproic Acid INJ 500 MG in 0.9 % Sodium Chloride 100 ML IVPB SCH (05:39)
[2018-05-31] MEDS: *HR* Heparin 5,000 UNIT/ML VIAL SQ SCH (05:41)
[2018-05-31 06:26] LABS: Basophils % 0.1 %; Hematocrit 32.8 % (35.3-44.9); Hemoglobin 11.3 g/dL (11.5-15.4); Immature Granulocytes % 0.6 % (0-4); Lymphocytes # 1.8 K/mcL (0.6-4.6); Lymphocytes % 15.5 %; Mean Corpuscular HGB Conc 34.5 g/dL (31.6-35.5); Mean Corpuscular Hemoglobin 29.9 pg (28.0-33.3); Mean Corpuscular Volume 86.8 fL (83.0-100.0); Monocytes # 0.4 K/mcL (0.0-1.3); Monocytes % 3.6 %; Neutrophils # 9.1 K/mcL (1.6-8.9); Platelet Count 236 K/mcL (140-400); Red Blood Count 3.78 M/mcL (3.82-4.97); Red Cell Distribution Width 12.3 % (11.5-14.5); Segmented Neutrophils % 80.2 %
[2018-05-31 06:42] LABS: Alanine Aminotransferase 15 Units/L (7-52); Albumin 3.7 g/dL (3.5-5.7); Albumin/Globulin Ratio 1.7 (1.1-2.2); Alkaline Phosphatase 89 Units/L (34-104); Aspartate Amino Transferase 14 Units/L (13-39); BUN/Creatinine Ratio 24 (6-26); Bilirubin,Total 0.6 mg/dL (0.3-1.0); Blood Urea Nitrogen 16 mg/dL (8-23); Calcium 9.1 mg/dL (8.6-10.3); Carbon Dioxide 24 mEq/L (23-29); Chloride 109 mEq/L (98-107); Globulin 2.2 g/dL (2.4-3.5); Glucose 134 mg/dL (70-105); Osmolality,Calculated 291 (280-300); Sodium 139 mEq/L (136-145); Total Protein 5.9 g/dL (6.4-8.9); eGFR For African Americans > 60 (> 60); eGFR For Non-African Americans > 60 (> 60)
[2018-05-31] MEDS: Aspirin Enteric Coated 325 MG Tablet PO SCH (07:59)
[2018-05-31] MEDS: Lisinopril-HCTZ 20-12.5mg TABLET PO SCH (07:59)
[2018-05-31 12:16] VITALS: BP 111/68
--- NOTE | 2018-05-31 13:41 | Neurology Progress Note ---
Date of Encounter: 05/31/18 Time of Encounter: 09:45 Assessment and Plan (1) Migrainous dizziness Current Visit: Yes Status: Acute seems to be doing better suggest to discontinue IV steroids and discontinue IV Depacon. No evidence of acute stroke on MRI of the brain or on exam. Suggest to start amitriptyline 25 mg at bedtime for headache migraine prevention. She could follow up with the neurology clinic as an outpatient (2) Stenosis of right carotid artery without infarction Current Visit: Yes Status: Acute MRI of the brain did not show any acute infarction during the workup she did noted to have right internal carotid stenosis 60-79% no evidence of any acute infarction. At the moment no lateralizing sign of the stroke she probably would benefit from medical management with antiplatelet therapy with aspirin along with the statin. On the other hand she would need repeat imaging studies in 6 month to a year. She would benefit from vascular surgery consultation, that could be done as an outpatient at the moment does not think that she would require any acute intervention (3) Acute intractable headache Current Visit: Yes Status: Acute Improved with IV medication as they are better now discontinue IV steroids and Depacon from neurology standpoint she is stable and could be discharged to home with follow-up with neurology in 3-4 weeks Qualifiers: Headache type: unspecified Qualified Code(s): R51 - Headache (4) Dizziness Current Visit: Yes Status: Acute Subjective Interval history: Patient seems to be doing better headache has improved she is able to ambulate without any symptoms or any other problem. MRI of the brain is been negative Objective - Constitutional Vitals: Temp Pulse Resp BP Pulse Ox 97.9 F 79 18 111/68 96 05/31/18 12:14 05/31/18 12:14 05/31/18 12:14 05/31/18 12:14 05/31/18 12:14 - Neurological Exam Motor Examination: Present: grossly full strength in all extremities Sensation intact: Present: intact Reflex and gait examination: intact Reflexes: Biceps: 1+, Triceps: 1+, Brachioradialis: 1+, Patella: 1+, Achilles: 1 + Mental Status Examination: Present: awake, alert, oriented to person, oriented to place, oriented to time, follows commands appropriately, answers questions appropriately Cranial nerve examination: Present: PERRL, EOMI, visual arita intact, no facial asymmetry is present Cerebellar examination: Present: no dysmetria - VTE Documentation of Mechanical Device: Graduated compression elastic hosiery Results - Laboratory Findings CBC and BMP: 05/31/18 06:08 05/31/18 06:08 Abnormal lab findings: Abnormal lab results WBC 11.4 K/mcL (4.3-11.1) H 05/31/18 06:08 RBC 3.78 M/mcL (3.82-4.97) L 05/31/18 06:08 Hgb 11.3 g/dL (11.5-15.4) L D 05/31/18 06:08 Hct 32.8 % (35.3-44.9) L 05/31/18 06:08 Neutrophils # 9.1 K/mcL (1.6-8.9) H 05/31/18 06:08 Chloride 109 mEq/L (98-107) H 05/31/18 06:08 Glucose 134 mg/dL (70-105) H 05/31/18 06:08 POC Glucose 113 mg/dL (70-99) H 05/29/18 10:27 Hemoglobin A1c 6.0 % (-5.6) H 05/30/18 02:37 Serum Total Protein 5.9 g/dL (6.4-8.9) L 05/31/18 06:08 Globulin 2.2 g/dL (2.4-3.5) L 05/31/18 06:08 Cholesterol 202 mg/dL (< 200) H 05/30/18 02:37 LDL Cholesterol, Calc 145 mg/dL (0-99) H 05/30/18 02:37 Cholesterol/HDL Ratio 5.1 (0-4.9) H 05/30/18 02:37 Consult Discharge Plan - Plan Referrals: Eunice Gillis, HTML DEVELOPER [Primary Care Provider] -
--- NOTE | 2018-05-31 14:51 | Discharge Summary ---
- NOTES TO OUTPATIENT PROVIDER Notes to Outpatient Provider: Pt will need follow up with vascular for ICA stenosis (60-79% right ICA) and has been started on ASA and statin for medical management. New diagnosis of migraines, will need to follow with neuro in 3 weeks, has been started on amitriptyline and will need refills. Orders not resulted at time of discharge: Pending orders 06/01/18 04:00 Complete Blood Count [HEME] AM 0400 Comprehensive Metabolic Panel AM 0400 Date of Encounter: 05/31/18 Time of Encounter: 10:20 - Discharge Diagnosis (1) Dizziness Priority: Primary Status: Resolved Assessment and Plan: Pt states that she is feeling better and dizziness has resolved. Pt is able to ambulate without staggering, nausea, dizziness. Discontinue IV steroids and Depacon, start amitriptyline 25mg po qhs for migraine prevention. Follow-up with neurology in 3 weeks. (2) Headache Priority: Secondary Status: Acute Assessment and Plan: Plan as above. Qualifiers: Headache type: unspecified Headache chronicity pattern: acute headache Intractability: intractable Qualified Code(s): R51 - Headache (3) HTN (hypertension) Priority: Secondary Status: Chronic Assessment and Plan: Chronic. Well controlled. Continue home medications. Qualifiers: Hypertension type: essential hypertension Qualified Code(s): I10 - Essential (primary) hypertension (4) HLD (hyperlipidemia) Priority: Secondary Status: Chronic Assessment and Plan: Continue home medication. Qualifiers: Hyperlipidemia type: pure hypercholesterolemia Qualified Code(s): E78.00 - Pure hypercholesterolemia, unspecified; E78.0 - Pure hypercholesterolemia (5) Gout Priority: Secondary Status: Chronic Assessment and Plan: Chronic. Continue home medication. Qualifiers: Gout site: unspecified site Gout etiology: unspecified cause Chronicity: unspecified Qualified Code(s): M10.9 - Gout, unspecified (6) GERD (gastroesophageal reflux disease) Priority: Secondary Status: Chronic Assessment and Plan: Chronic. No increase in symptoms. Continue home medications. Qualifiers: Esophagitis presence: esophagitis presence not specified Qualified Code(s) : K21.9 - Gastro-esophageal reflux disease without esophagitis (7) Facial droop Priority: Secondary Status: Acute Assessment and Plan: Likely secondary to migraines. MRI is negative, head CT is negative. Continue amitriptyline at night. (8) Morbid obesity Priority: Secondary Status: Chronic Assessment and Plan: Chronic. Continue to encourage lifestyle modifications. (9) DVT prophylaxis Priority: Secondary Status: Acute Assessment and Plan: MARCO A fabian. Patient has been ambulatory today. Hospital course: Ms. Chamberlain is a 62 year old female with PMH CKD, GERD, gout, HLD, HTN, morbid obesity. Pt presents to the ED with several day history of dizziness, nausea, vomiting, and headache. MRI and head CT both negative. Neurology consulted and give new diagnosis of migrainous dizziness and will see pt in the office. Pt was treated with IV steroids and IVF hydration, improved,and is back to baseline. Pt will be started on amitriptyline 25mg po qhs for migraine prevention. Carotid duplex revealed 60-79% stenosis in right ICA, pt has been started on ASA and statin and will need to follow up with vascular surgeon for evaluation. Vitals and labs are stable and WNL . Pt is being discharged in stable condition. Discharge discussed with: patient - Time Spent with Patient Total time spent providing and/or coordinating discharge services: Less than 30 minutes - Discharge Medications Prescriptions: Amitriptyline [Elavil] 25 mg PO HS #30 tablet Aspirin Enteric Coated [Aspirin EC] 325 mg PO DAILY #30 tablet. Home Medications: Omeprazole Magnesium [Prilosec Otc] 20 mg PO DAILY 08/25/15 [History] Ibuprofen [Motrin] 600 mg PO Q6HR PRN #20 tab 05/20/17 [Rx] Allopurinol [Zyloprim 100 MG] 100 mg PO DAILY PRN 05/29/18 [History] Atorvastatin [Lipitor] 40 mg PO DAILY 05/29/18 [History] Citalopram Hydrobromide [Citalopram HBr] 20 mg PO DAILY 05/29/18 [History] Indomethacin 50 mg PO DAILY PRN 05/29/18 [History] Lisinopril-HCTZ 20-12.5 [Prinzide 20-12.5] 1 tab PO DAILY 05/29/18 [History] Tramadol HCl [Ultram] 50 mg PO BID PRN 05/29/18 [History] Amitriptyline [Elavil] 25 mg PO HS #30 tablet 05/31/18 [Rx] Aspirin Enteric Coated [Aspirin EC] 325 mg PO DAILY #30 tablet. 05/31/18 [Rx] Allergies/Adverse Reactions: 3 Allergy/AdvReac Type Severity Reaction Status Date / Time Tetanus Vaccines and Toxoid Allergy Swelling Verified 05/29/18 12:20 [Tetanus Vaccines & Toxoid] of Lip/Tongue/Throat Date of admission: 05/29/18 12:02 Primary care physician: Eunice Gillis CNP Consults: 05/29/18 13:55 Consult to [employer] [CONS] Routine Reason for SW Consult: Please assess patient for possible home needs for post -discharge planning. 05/29/18 16:09 Consult to Neurology [CONS] Routine Consulting Provider: Neurology [facility] Reason for Consult: Patient experiencing dizziness and vertigo sx since Friday. N/V/MEDELLIN/pain to bilateral jaws. No hx of vertigo or migraines. Right mouth droop on exam. UE/LE strengths equal bilaterally otherwise. CT of head unremarkable. MRI of head/brain and carotid Dopplers ordered. Call Completed: Yes Discharging clinician: Mimi Betancourt Anticipated date of discharge: 05/31/18 - Constitutional Vitals: Temp Pulse Resp BP Pulse Ox 97.9 F 79 18 111/68 96 05/31/18 12:14 05/31/18 12:14 05/31/18 12:14 05/31/18 12:14 05/31/18 12:14 General appearance: Present: cooperative, mild distress (Sensitivity to light and sound), A&O X 3, morbidly obese, pleasant, no acute distress, answers questions appropriately - Head Head exam: Present: atraumatic, normal inspection, normocephalic - Eye Eye exam: Present: normal appearance, conjuntiva pink, sclera anicteric - Neck Neck exam general surgery: Present: supple, trachea midline. Absent: lymphadenopathy, tenderness - Respiratory Respiratory exam: Present: chest wall tenderness, CTAB. Absent: accessory muscle use, rales, rhonchi, wheezes - Cardiovascular Cardiovascular exam: Present: RRR, +S1, +S2. Absent: diastolic murmur, gallop, rubs, systolic murmur - GI/Abdominal GI/Abdominal exam: Present: normal bowel sounds, soft. Absent: distended, hepatomegaly, tenderness - Extremities Exam Extremities exam: Present: normal capillary refill, normal inspection, warm, radial pulses palpable and symmetrical. Absent: calf tenderness, cyanotic, pedal edema, tenderness - Neurological Exam Neurological exam: Present: alert, oriented X3, no focal deficits. Absent: facial droop, speech deficit - Skin Skin exam: Present: dry, intact, normal color, warm. Absent: rash - Patient Status Disposition: Home, Self-Care Condition: Good Functional capacity at discharge: independent ambulation Overall status at discharge: patient is progressing back to baseline - Discharge Instructions Follow Up With: Eunice Gillis CNP [Primary Care Provider] - (An appointment has been requested. The office will contact you at home to schedule an appointment. ) Additional Instructions: Please follow up with your PCP in the next 5-7 days for a recheck. Return to the ER if your symptoms return or worsen. Take your medications as directed. Your new prescriptions are at your pharmacy. Return to your normal diet and activities as tolerated. - Diet and Activity Activity: increase activity as tolerated Diet: advance to your usual diet - VTE Documentation of Mechanical Device: Graduated compression elastic hosiery
== END 2018-05-31 17:00 | disposition home or self-care (01) ==
LOC: 3BNU 10:09 → EMEROO 10:09 → 3BNU 13:23
PROVIDERS: ADMIT Student in an Organized Health Care Education/Training Program; ATTEND Student in an Organized Health Care Education/Training Program